=== PATIENT | female | born 1955 ===

== ENCOUNTER 2021-01-26 10:07 | Emergency (ER) | payer OTHER ==
[2021-01-26] MEDS ORDERED: NORepinephrine/NS 4 MG-250 ML 0 MG/0 ML BAG IV ONE (10:35)
--- NOTE | 2021-01-26 10:49 | Emergency Department Report ---
HPI - General Chief Complaint: Cardiac Arrest/CPR Time Seen by Provider: 01/26/21 10:35 - HPI HPI: 65-year-old female with history of DM 2 brought in by EMS in cardiac arrest. According to the EMS report, 911 was called because the patient was complaining of chest pain. When they arrived, they witnessed the patient become unresponsive and going to cardiac arrest. They say her initial rhythm was PEA which quickly changed to asystole. CPR was started and ACLS protocol was followed. Intubation was attempted but was aborted due to an anterior airway with swelling. An I-gel was inserted. Cardiac epi was given x3. When the patient arrived to the emergency department, she had been down for approximately 25 minutes. Her blood sugar was 287 for EMS. Further details of the HPI are limited due to the patient's current clinical condition. ED Past Medical Hx - Past Medical History Previous Medical History?: Yes Hx Hypertension: Yes (MD took her off BP meds less than a year ago) Hx Diabetes: Yes - Surgical History Additional Surgical History: right hand surgery - Social History Smoking Status: Never Smoker Substance Use Type: None ED Review of Systems ROS: Stated complaint: CARDIAC ARREST Other details as noted in HPI Comment: Unobtainable due to pts medical conditions Physical Exam - Physical Exam Physical Exam: GENERAL: Well developed and well nourished. Pulseless and unresponsive HEAD: Normocephalic. No obvious signs of trauma. ENT: Dry mucous membranes. I-gel in place EYES: Pupils are fixed and dilated bilaterally NECK: Trachea appears to be deviated slightly to the left. LUNGS: Bilateral breath sounds with bag valve mask ventilation CARDIOVASCULAR: CPR in progress. No palpable pulse during pulse/rhythm check VASCULAR: Extremities are cool and with cap refill of 3 to 4 seconds. IO is placed in the left tibia ABDOMEN: Abdomen is profoundly distended but soft. SKIN: Skin is dry NEURO: Unresponsive. MUSCULOSKELETAL: No obvious deformities. - Procedure Description Procedures done: Marion thoracostomy. The appropriate area of the right anterior chest wall was prepped with alcohol. 16 gauge Angiocath needle was inserted in the right second intercostal space at the mid axillary line. There was no baker of air at any time, but Angiocath was left in place and later removed ED Medical Decision Making - Lab Data Result diagrams: 01/26/21 10:46 01/26/21 10:46 - Medical Decision Making 65-year-old female with history of diabetes mellitus brought in by EMS in cardiac arrest after she complained of chest pain and became unresponsive and went into cardiac arrest in front of EMS. Her initial rhythm was PEA which quickly changed to asystole. CPR was initiated and ACLS protocol was followed. Fingerstick blood glucose was 287. Patient was given cardiac epi x3 prior to arrival. Upon arrival to our emergency department,, the patient was unresponsive and pulseless. Initial rhythm revealed coarse V. fib. The patient was defibrillated at 200 J. In addition, she was given 300 mg of IV amiodarone, 1 g of calcium, and 1 mg of epi. Physical examination revealed a greatly distended abdomen which was soft. EMS say that her abdomen was this distended when they arrived and they do not know the reason why. She has bilateral breath sounds with the I-gel. Given the reported history of an anterior airway with laryngeal swelling, intubation was deferred until the patient is stabilized. ACLS protocol was followed and the patient continued to receive epi and bicarb. At 1013 ROSC was achieved. Her initial blood pressure was in the 120s systolic. The monitor showed what appeared to be normal sinus rhythm. We proceeded with intubation which was successful. During the intubation I was able to see that she had edematous posterior pharynx and vocal cords. However, given that her trachea seems to be deviated to the left and concern for possible tension pneumothorax which may have led to her cardiac arrest, needle decompression was attempted using a 16-gauge Angiocath needle to the right second intercostal spac e at the mid axillary line. Upon placement in the appropriate position, however, there was no baker of air and there was also no change in the positioning of her trachea whatsoever. At this point the Angiocath needle was removed and chest x-ray was performed to definitively determine whether there is in fact a pneumothorax. The x-ray did not show a pneumothorax to my eyes the tube appeared to be in the correct position. A full set of labs were ordered as well as an EKG and plan to CT the patient's head, neck, and chest/abdomen/pelvis. I ordered IV fluids and a Levophed drip. However, the patient again lost her pulse at 1027 and CPR was again initiated and ACLS protocol was followed. ROSC was again achieved at 1031. Shortly thereafter, the patient unfortunately lost her pulse again at 1041. CPR was started but upon rhythm check the patient was found to be in PEA. Bedside ultrasound of the heart showed no significant cardiac activity. The patient did not have a pulse. Time of was called at 1043 The patient's family was brought to the Chapel so that I could speak to them. However, before I had a chance to go speak with the family, a code meant was called due to report of someone seizing. When the charge nurse arrived, apparently she was accosted by a family member that was extremely emotional and upset and was yelling obscenities in the charge nurses face. Security was called to assist. I did speak to each family member in an attempt to de- escalate situation. Eventually, the entire family calmed down and I spoke to them to disclose the in the Chapel. They were very emotional in their reaction but did not become aggressive, threatening, or violent this time and instead some of the family left. The provided further history and says that the patient has been retaining fluid for some time. He says her abdomen has gradually been gotten more and more distended over time. He said that this morning she was complaining of chest pain and shortness of breath prior to calling 911. Critical Care Time: Yes Critical care time in (mins) excluding proc time.: 35 Critical care attestation.: If time is entered above; I have spent that time in minutes in the direct care of this critically ill patient, excluding procedure time. Critical care time was spent in the evaluation/assessment, work-up, and attempted management of cardiac arrest including interpretation of x-rays, rhythm strips, and frequent reevaluation and reassessment. ED Disposition Clinical Impression: Cardiac arrest Disposition: 20 Is pt being admited?: No
--- NOTE | 2021-01-26 10:55 | XRay Report ---
CHEST 1 VIEW INDICATION / CLINICAL INFORMATION: arrest. COMPARISON: None available. FINDINGS: SUPPORT DEVICES: Somewhat low-lying endotracheal tube with tip approximately 1.4 cm above the rosa. HEART / MEDIASTINUM: No significant abnormality. LUNGS / PLEURA: Right perihilar airspace disease. Left lung is grossly clear. No pneumothorax. ADDITIONAL FINDINGS: No significant additional findings. IMPRESSION: 1. Right perihilar airspace disease. 2. Endotracheal tube with tip noted approximately 1.4 cm above the rosa. Signer Name: Niels Boyd MD Signed: 01/26/2021 10:51 AM Workstation Name: [id number]
[2021-01-26 10:58] LABS: Hematocrit 28.1 % (30.3-42.9); Mean Corpuscular HGB Conc 32 % (30-34); Mean Corpuscular Volume 98 fl (79-97); Platelet Count 269 K/mm3 (140-440); Red Blood Count 2.86 M/mm3 (3.65-5.03); Red Cell Distribution Width 15.1 % (13.2-15.2)
[2021-01-26 11:01] LABS: INR 1.09 (0.87-1.13)
[2021-01-26 11:02] LABS: Partial Thromboplastin Time 34.7 Sec. (24.2-36.6)
[2021-01-26 11:32] LABS: C-Reactive Protein 0.3 mg/dL (0.00-1.30)
[2021-01-26 12:01] LABS: Band Neutrophils # (Manual) 0.2 K/mm3; Total Cells Counted 100
[2021-01-26 12:02] LABS: Platelet Estimate Consistent w Auto; RBC Morphology Normal
[2021-01-26 12:05] LABS: Alanine Aminotransferase 23 units/L (7-56); Albumin 3.5 g/dL (3.9-5); BUN/Creatinine Ratio 20; Blood Urea Nitrogen 51 mg/dL (7-17); Calcium 9.3 mg/dL (8.4-10.2); Hemolysis Index 13
[2021-01-26 12:09] LABS: Bilirubin,Direct < 0.2 mg/dL (0-0.2)
[2021-01-26] MEDS ORDERED: CALCIUM CHLORIDE 1,000 MG/10 ML SYRINGE IV ONE (15:27)
[2021-01-26] MEDS ORDERED: EPINEPHrine 1 MG/10 ML SYRINGE ONE ×2 (15:27→15:29)
[2021-01-26] MEDS ORDERED: ADENOSINE 6 MG/2 ML INJ ONE (15:27)
[2021-01-26] MEDS ORDERED: SODIUM BICARB 8.4% 50 MEQ/50 ML SYRINGE IV ONE (15:27)
[2021-01-26] MEDS ORDERED: EPINEPHrine 30 MG/30 ML INJ IV ONE (15:27)
== END 2021-01-26 14:00 ==
LOC: ED 10:07
DX: I46.9 Cardiac arrest, cause unspecified (principal); I10 Essential (primary) hypertension; E11.9 Type 2 diabetes mellitus without complications; Z91.010 Allergy to peanuts; Z91.013 Allergy to seafood
CPT/HCPCS: 31500; 32554; 36415; 71045; 80048; 80076; 82728; 82947; 82962; 83615; 83690; 83735; 83880; 84145; 84443; 84484; 84703; 85007; 85025; 85379; 85610; 85730; 86140; 86850; 86900; 86901; 87040; 92950; 99291; J0153; J0171; 80320; G0480